=== PATIENT | male | born 1965 | race Caucasian/White ===

== ENCOUNTER → 2020-04-26 | Outpatient (CLI) | payer OTHER ==
[2020-04-27 16:10] LABS: CORONAVIRUS (COVID19) CSH-NRL Negative (Negative)
== END | disposition home or self-care (01) ==
LOC: LAB SHORT 10:59 → LAB EV 10:59
PROVIDERS: Family Medicine
DX: J06.9 Acute upper respiratory infection, unspecified (principal); Z20.828 Contact with and (suspected) exposure to other viral communicable diseases
CPT/HCPCS: U0003

== ENCOUNTER → 2023-05-14 | Outpatient (CLI) | payer OTHER ==
[2023-05-14 13:30] LABS: Red Blood Cells, Urine 0-2 /hpf (0-2); White Blood Cells, Urine 0-2 /hpf (0-5)
[2023-05-14 13:31] LABS: Bacteria Rare /hpf; Squamous Epithelial Cells Not Seen /hpf (Few)
[2023-05-14 13:45] LABS: Microalb/Creat Ratio UR, Rand 9.609 mg/g (0.000-30.000); Microalbumin, Random Urine 12.3 mg/L (0.000-20.000)
== END | disposition home or self-care (01) ==
LOC: LAB 09:27 → LAB SHORT 09:27
PROVIDERS: Hospitalist
DX: I51.9 Heart disease, unspecified (principal)
CPT/HCPCS: 81015; 82043; 82570

== ENCOUNTER → 2023-08-08 | Outpatient (CLI) | payer OTHER | END | disposition home or self-care (01) | LOC: LAB 15:32 → LAB SHORT 15:32 | DX: H92.11 Otorrhea, right ear (principal) | CPT/HCPCS: 87070; 87077; 87147; 87186; 87205 ==